=== PATIENT | female | born 1960 | race Caucasian/White ===

== ENCOUNTER 2020-10-18 22:29 | Emergency (ER) | payer OTHER ==
[~2020-10-18] VITALS: Ht 157.5 cm; Wt 73.9 kg
[~2020-10-18 22:29] MED LIST: CIPRO500 MG; COZAAR50 MG; FLAGYL500MG; MOBIC15 MG PO; ZOLOFT25 MG
[2020-10-19] MEDS ORDERED: CEPHALEXIN250 MG/5 M PO (06:33)
[2020-10-19] MEDS ORDERED: DOLOGESIC-DF 51 EACH PO (06:33)
== END 2020-10-19 06:40 | disposition home or self-care (01) ==
LOC: ER 22:29
DX: N20.0 Calculus of kidney (principal); N39.0 Urinary tract infection, site not specified; K57.90 Diverticulosis of intestine, part unspecified, without perforation or abscess without bleeding; R10.84 Generalized abdominal pain; Z11.52 Encounter for screening for COVID-19